=== PATIENT | female | born 1975 | race African-American/Black ===

== ENCOUNTER 2017-02-19 14:57 | Emergency (ER) | payer OTHER ==
[~2017-02-19] VITALS: Ht 165.1 cm; Wt 75.7 kg
[2017-02-19 15:04] VITALS: BP 137/89
== END 2017-02-19 15:28 | disposition home or self-care (01) ==
LOC: ER 14:59
DX: J06.9 Acute upper respiratory infection, unspecified (principal); Z87.891 Personal history of nicotine dependence
CPT/HCPCS: 99283; A4606; Z7610